=== PATIENT | male | born 1965 | race African-American/Black ===

== ENCOUNTER 2018-05-15 17:47 | Emergency (ER) | payer MEDICAID ==
[~2018-05-15] VITALS: Ht 175.3 cm; Wt 77.3 kg
[2018-05-15] MEDS ORDERED: nitroGLYCERIN 0.4mg SUBLingual tab SL PRN (18:05)
[2018-05-15 18:30] LABS: BASOPHILS % (AUTO) 0.4 % (0-1); EOSINOPHILS # (AUTO) 0.1 X10'3 (0-0.9); HEMATOCRIT 43.6 % (42.0-52.0); HEMOGLOBIN 14.5 g/dl (14.0-17.9); LYMPHOCYTES # (AUTO) 1.1 X10'3 (1.1-4.8); MEAN CORPUSCULAR HEMOGLOBIN 25.6 PG (27.0-31.0); MEAN CORPUSCULAR HGB CONC 33.2 g/dL (33.0-36.5); MEAN CORPUSCULAR VOLUME 77.3 FL (78-98); MEAN PLATELET VOLUME 8.4 FL (7.4-10.4); MONOCYTES # (AUTO) 0.4 X10'3 (0-0.9); MONOCYTES % (AUTO) 8.8 % (2-12); NEUTROPHILS # (AUTO) 3.2 X10'3 (1.8-7.7); NEUTROPHILS % (AUTO) 65.8 % (42-75); PLATELET COUNT 180 X10'3 (140-440); RED BLOOD COUNT 5.64 X10'6 (4.70-6.10); RED CELL DISTRIBUTION WIDTH 15.3 % (11.5-14.5); WHITE BLOOD COUNT 4.8 X10'3 (4.5-11.0)
[2018-05-15 18:38] LABS: TOTAL CARBON DIOXIDE 28.2 MMOL/L (24-32)
[2018-05-15 18:45] LABS: PROTHROMBIN TIME 10.1 SECONDS (9.0-12.0)
[2018-05-15 19:07] LABS: ALANINE AMINOTRANSFERASE 34 U/L (12-78); ALBUMIN 4.1 G/DL (3.4-5.0); ALBUMIN/GLOBULIN RATIO 1.2 (1.1-1.5); ALKALINE PHOSPHATASE 55 IU/L (46-116); ANION GAP 10 (8-16); ASPARTATE AMINO TRANSFERASE 24 U/L (10-37); BILIRUBIN,TOTAL 0.3 MG/DL (0.1-1.0); BLOOD UREA NITROGEN 8 MG/DL (7-18); CALCIUM 9.4 MG/DL (8.5-10.1); CHLORIDE 104 MMOL/L (99-107); GLUCOSE 104 MG/DL (70-104); POTASSIUM 3.6 MMOL/L (3.5-5.1); SODIUM 142 MMOL/L (135-145); TOTAL PROTEIN 7.4 G/DL (6.4-8.2); eGFR > 90 ML/MIN
[2018-05-15] MEDS ORDERED: NITR0.4T48 SL (19:13)
[2018-05-15 19:28] VITALS: BP 137/74
== END 2018-05-15 19:35 | disposition home or self-care (01) ==
LOC: ER 17:47
DX: I20.8 Other forms of angina pectoris (principal); I10 Essential (primary) hypertension; E11.9 Type 2 diabetes mellitus without complications; Z87.891 Personal history of nicotine dependence; Z79.899 Other long term (current) drug therapy
CPT/HCPCS: 36415; 71045; 80053; 83880; 84484; 85025; 85610; 93005; 99284

== ENCOUNTER 2018-07-09 10:14 | Day surgery (SDC) | payer MEDICAID ==
[2018-07-03 15:47] LABS: BASOPHILS % (AUTO) 0.2 % (0-1); EOSINOPHILS # (AUTO) 0.1 X10'3 (0-0.9); EOSINOPHILS % (AUTO) 2.2 % (0-6); HEMATOCRIT 45.9 % (42.0-52.0); HEMOGLOBIN 15.2 g/dl (14.0-17.9); LYMPHOCYTES # (AUTO) 0.9 X10'3 (1.1-4.8); LYMPHOCYTES % (AUTO) 15.7 % (21-51); MEAN CORPUSCULAR HEMOGLOBIN 25.7 PG (27.0-31.0); MEAN CORPUSCULAR HGB CONC 33.1 g/dL (33.0-36.5); MEAN CORPUSCULAR VOLUME 77.5 FL (78-98); MEAN PLATELET VOLUME 8.8 FL (7.4-10.4); MONOCYTES # (AUTO) 0.4 X10'3 (0-0.9); MONOCYTES % (AUTO) 6.1 % (2-12); NEUTROPHILS # (AUTO) 4.4 X10'3 (1.8-7.7); NEUTROPHILS % (AUTO) 75.8 % (42-75); PLATELET COUNT 184 X10'3 (140-440); RED BLOOD COUNT 5.93 X10'6 (4.70-6.10); RED CELL DISTRIBUTION WIDTH 15.8 % (11.5-14.5); WHITE BLOOD COUNT 5.8 X10'3 (4.5-11.0)
[2018-07-03 16:04] LABS: PARTIAL THROMBOPLASTIN TIME 31 SECONDS (22-32)
[2018-07-03 16:18] LABS: ALANINE AMINOTRANSFERASE 47 U/L (12-78); ALBUMIN 4.4 G/DL (3.4-5.0); ALBUMIN/GLOBULIN RATIO 1.3 (1.1-1.5); ALKALINE PHOSPHATASE 52 IU/L (46-116); ANION GAP 11 (8-16); ASPARTATE AMINO TRANSFERASE 28 U/L (10-37); BILIRUBIN,TOTAL 0.5 MG/DL (0.1-1.0); BLOOD UREA NITROGEN 11 MG/DL (7-18); BUN/CREATININE RATIO 9.2 (5.4-32.0); CALCIUM 9.6 MG/DL (8.5-10.1); CHLORIDE 105 MMOL/L (99-107); GLUCOSE 131 MG/DL (70-104); POTASSIUM 3.6 MMOL/L (3.5-5.1); SODIUM 144 MMOL/L (135-145); TOTAL CARBON DIOXIDE 27.8 MMOL/L (24-32); TOTAL PROTEIN 7.8 G/DL (6.4-8.2); eGFR 77 ML/MIN
[~2018-07-09] VITALS: Ht 170.2 cm; Wt 79.7 kg
[2018-07-09] VITALS (12 sets, daily range): BP systolic 120–153; BP diastolic 73–111
[~2018-07-09 10:14] MED LIST: NITR0.4T48 SL
[2018-07-09] MEDS ORDERED: MESSAGE TO PHARMACY PO ONE (10:35)
[2018-07-09] MEDS ORDERED: normal saline 1,000 ML IV SCH (10:35)
[2018-07-09] MEDS ORDERED: insulin Lispro (HumaLOG) vial - multi-dose SQ SCH (10:35)
[2018-07-09] MEDS ORDERED: dextrose 50%-water 50ml dispensing syringe IV PRN ×2 (10:35)
[2018-07-09] MEDS ORDERED: nitroGLYCERIN 0.4mg SUBLingual tab SL PRN (10:35)
[2018-07-09] MEDS ORDERED: dextrose ORAL solution 15 GM/59 ML bottle PO PRN ×2 (10:35)
[2018-07-09] MEDS ORDERED: glucagon, human recombinant 1mg kit SUBCUT PRN (10:35)
[2018-07-09] MEDS ORDERED: diphenhydrAMINE 25mg capsule PO PRN (10:35)
[2018-07-09] MEDS ORDERED: LORazepam 0.5 MG tablet PO PRN (10:35)
[2018-07-09] MEDS ORDERED: METF500T PO (11:29)
[2018-07-09] MEDS ORDERED: NAPR-56 PO (11:29)
[2018-07-09] MEDS ORDERED: ASPI-611 PO (11:29)
[2018-07-09] MEDS ORDERED: GABA-534 PO (11:29)
[2018-07-09] MEDS ORDERED: SERT100T PO (11:29)
[2018-07-09] MEDS ORDERED: LISI-604 PO (11:29)
[2018-07-09] MEDS ORDERED: LIDOcaine 1% (10mg/ml)w/preservative injection 20ml MDV ONE (12:09)
[2018-07-09] MEDS ORDERED: iohexol 350MG/ML 100ml bottle IV ONE (12:09)
[2018-07-09] MEDS ORDERED: iohexol 350 MG/ML 50ML vial IV ONE (12:09)
[2018-07-09] MEDS ORDERED: midazolam 2 mg/2 ml injection ONE ×2 (12:32→12:49)
[2018-07-09] MEDS ORDERED: fentaNYL/PF 50MCG/1 ML 2ML syringe ONE (12:33)
[2018-07-09] MEDS ORDERED: HYDROcodone/acetaminophen 5mg/325mg tablet PO PRN (13:40)
[2018-07-09] MEDS ORDERED: HYDROcodone/acetaminophen 10/325mg tab PO PRN (13:40)
[2018-07-09] MEDS ORDERED: acetaminophen 325mg tablet PO PRN (13:40)
[2018-07-09] MEDS ORDERED: proCHLORperazine 10 MG/2 ml inj IV PRN (13:40)
[2018-07-09] MEDS ORDERED: OXAZEpam 15mg capsule PO PRN (13:40)
[2018-07-09] MEDS ORDERED: ondansetron/PF 4mg/2ml inj IV PRN (13:40)
[2018-07-09] MEDS ORDERED: insulin glargine (Lantus) pen - multi-dose SQ SCH (21:00)
== END 2018-07-09 19:00 | disposition home or self-care (01) ==
LOC: SSTAY O 10:14
PROVIDERS: ATTEND Internal Medicine Cardiovascular Disease
DX: I25.10 Atherosclerotic heart disease of native coronary artery without angina pectoris (principal); E78.5 Hyperlipidemia, unspecified; I73.9 Peripheral vascular disease, unspecified; E11.9 Type 2 diabetes mellitus without complications; Z87.891 Personal history of nicotine dependence
CPT/HCPCS: 36415; 71046; 80053; 82948; 85025; 85610; 85730; 93005; 93458; 99152; 99153; A6257; C1760; C1769; J1644; J2001; J2250; J3010; J7030; Q0163; Q9967; A4620; J1815

== ENCOUNTER 2018-07-10 14:36 | Emergency (ER) | payer MEDICAID ==
[~2018-07-10] VITALS: Ht 170.2 cm; Wt 81.8 kg
[~2018-07-10 14:36] MED LIST changes: +ASPI-611 PO; +GABA-534 PO; +LISI-604 PO; +METF500T PO; +NAPR-56 PO; +SERT100T PO
[2018-07-10 18:55] VITALS: BP 128/81
== END 2018-07-10 18:57 | disposition home or self-care (01) ==
LOC: ER 14:36
DX: G89.18 Other acute postprocedural pain (principal); R10.31 Right lower quadrant pain; I10 Essential (primary) hypertension; E11.9 Type 2 diabetes mellitus without complications; Z79.82 Long term (current) use of aspirin; Z79.84 Long term (current) use of oral hypoglycemic drugs; Z79.899 Other long term (current) drug therapy
CPT/HCPCS: 93926; 99284